=== PATIENT | female | born 1960 | race African-American/Black ===

== ENCOUNTER 2021-01-21 12:04 | Emergency (ER) | payer OTHER ==
[~2021-01-21] VITALS: Ht 149.9 cm; Wt 40.9 kg
[2021-01-21 13:58] VITALS: BP 150/80
[2021-01-21] MEDS ORDERED: FOLI-130 PO (14:22)
[2021-01-21] MEDS ORDERED: LACT10SO62 PO (14:22)
[2021-01-21] MEDS ORDERED: FURO20TA4 PO (14:22)
[2021-01-21] MEDS ORDERED: PANT40TA54 PO (14:22)
[2021-01-21] MEDS ORDERED: SPIR25 PO (14:22)
[2021-01-21] MEDS ORDERED: FERR325T22 PO (14:22)
== END 2021-01-21 15:04 | disposition designated cancer center or children's hospital (05) ==
LOC: EMS 12:31
DX: S01.81XA Laceration without foreign body of other part of head, initial encounter (principal); I10 Essential (primary) hypertension; Z88.0 Allergy status to penicillin; Z88.5 Allergy status to narcotic agent; W01.0XXA Fall on same level from slipping, tripping and stumbling without subsequent striking against object, initial encounter; Y93.01 Activity, walking, marching and hiking; Y92.481 Parking lot as the place of occurrence of the external cause; Y99.8 Other external cause status
CPT/HCPCS: 99285; Z7502